=== PATIENT | female | born 1950 | race Asian ===

== ENCOUNTER 2017-11-23 10:50 | Inpatient (IN) | payer OTHER ==
[~2017-11-23] VITALS: Ht 160 cm; Wt 57.7 kg
[2017-11-23] MEDS ORDERED: ATEN50TA8 PO (12:01)
[2017-11-23] MEDS ORDERED: SODIUM CHLORIDE 0.9% 1000ML 1,000 ML IV SCH ×2 (12:19→17:00)
[2017-11-23] MEDS ORDERED: MECLIZINE HCL 25 MG TAB PO STA (12:19)
[2017-11-23 12:54] LABS: BASO % 0.4 %; BASO ABS # 0.02 K/uL (0-0.2); EOS % 2.6 %; EOS ABS # 0.13 K/uL (0-0.5); HEMATOCRIT 39.6 % (37-47); HEMOGLOBIN 13.5 g/dL (12.0-16.0); IG# 0.01 K/uL (0.00-0.02); LYMPH % 32.8 %; LYMPH ABS # 1.65 K/uL (1.2-3.4); MEAN CELL VOLUME 90.4 fL (80-100); MEAN CORPUSCULAR HEMOGLOBIN 30.8 pg (25-34); MEAN CORPUSCULAR HGB CONC 34.1 g/dl (32-36); MEAN PLATELET VOLUME 9.8 fL (7.4-10.4); MONO % 7.8 %; MONO ABS # 0.39 K/uL (0.11-0.59); NEUT % 56.2 %; NEUT ABS # 2.83 K/uL (1.4-6.5); PLATELET COUNT 224 K/uL (130-400); RED CELL DISTRIBUTION WIDTH CV 12.8 % (11.5-14.5); RED CELL DISTRIBUTION WIDTH SD 42.4 fL (36.4-46.3); WHITE BLOOD COUNT 5.03 K/uL (4.8-10.8)
[2017-11-23 13:02] LABS: PTT PATIENT 30.6 SECONDS (21.0-31.0)
--- NOTE | 2017-11-23 13:08 | DIAGNOSTIC IMAGING REPORT ---
HEAD WITHOUT CONTRAST (CT) CLINICAL HISTORY: 67 years-old Female presenting with Stroke. TECHNIQUE: Multidetector CT imaging of the head was performed without the use of intravenous contrast. IV contrast: None. A dose lowering technique was used consistent with the principles of ALARA (as low as reasonably achievable). COMPARISON: None. CT DOSE (mGy.cm): The estimated cumulative dose is 729.78 mGycm. FINDINGS: General Practice topogram: Unremarkable. Ventricles and sulci normal in size. Brain parenchyma normal in appearance with preserved sue-white differentiation. No mass effect or midline shift. No hemorrhage or acute territorial infarct. No extra-axial fluid collection. Paranasal sinuses and mastoid air cells clear. Calvarium intact. IMPRESSION: 1. No acute intracranial abnormality. Electronically signed by: Damaso Buchanan M.D. 11/23/2017 1:07 PM Dictated Date/Time: 11/23/2017 1:05 PM
[2017-11-23 13:15] LABS: BLOOD UREA NITROGEN 17 mg/dl (7-18); CALCIUM 9.4 mg/dl (8.5-10.1); CARBON DIOXIDE 26 mmol/L (21-32); CREATININE 0.68 mg/dl (0.60-1.20); GLUCOSE 83 mg/dl (70-99); POTASSIUM 3.6 mmol/L (3.5-5.1); SODIUM 138 mmol/L (136-145)
--- NOTE | 2017-11-23 13:31 | DIAGNOSTIC IMAGING REPORT ---
CHEST ONE VIEW PORTABLE CLINICAL HISTORY: 67 years-old Female presenting with Stroke. TECHNIQUE: Portable upright AP view of the chest was obtained. COMPARISON: 08/05/2007. FINDINGS: Atherosclerosis of the aortic arch. Cardiac silhouette normal in size. Lungs and pleural spaces clear. Degenerative changes of the thoracic spine. Upper abdomen normal. IMPRESSION: 1. No acute cardiopulmonary disease. Electronically signed by: Damaso Buchanan M.D. 11/23/2017 1:30 PM Dictated Date/Time: 11/23/2017 1:29 PM
[2017-11-23] MEDS ORDERED: ALUMINUM/MAGNESIUM/SIMETH (MAALOX MAX) 30 ML UDC PO PRN (14:15)
[2017-11-23] MEDS ORDERED: MECLIZINE HCL 25 MG TAB PO PRN (14:15)
[2017-11-23] MEDS ORDERED: ONDANSETRON INJ 2 MG/ML 2 ML VIAL IV PRN (14:15)
[2017-11-23] MEDS ORDERED: ACETAMINOPHEN 325 MG TAB PO PRN (14:15)
[2017-11-23] MEDS ORDERED: MAGNESIUM HYDROXIDE SUSP 30 ML UDC PO PRN (14:15)
[2017-11-23] MEDS ORDERED: POLYETHYLENE (MIRALAX) 17 GM PACK PO PRN (14:15)
[2017-11-23 14:24] VITALS: O2SAT 99; Ht 160 cm; Wt 57.7 kg
--- NOTE | 2017-11-23 14:33 | History and Physical ---
History & Physical Date & Time of Service: Nov 23, 2017 at 14:19 Chief Complaint: Possible Stroke, Sent By Physician Primary Care Physician: Andrea Patel M.D. History of Present Illness Source: patient, hospital records This is a 67 y/o female with a history of HTN and GERD who presented to the ED on 11/23 with intermittent dizziness and transient visual loss. The patient states that she first developed episodes of dizziness in August. She had gone to urgent care at that time for evaluation. An EKG was obtained, which was normal, and she was sent home. The dizziness then resolved until about a week ago. The patient states that the dizziness occurs when she stands up or bends over, or if she moves her head. She is able to walk without difficulty as long as she is looking forward. She denies any falls. She states she does sometimes feels nauseous with the dizziness but denies any vomiting. She notes she has felt more fatigued for the last few months. Two days ago, the patient developed a loss of vision in the upper half of her right eye that lasted about 10-15 minutes before resolving. The patient had called her eye doctor at that time, who then scheduled her an appointment for 11/24. Currently, the patient is feeling well and denies any dizziness or nausea. Her vision is at her baseline. The patient denies fevers, chills, sweats, loss of consciousness, chest pain, palpitations, claudication, cough, wheezing, shortness of breath, vomiting, abdominal pain, dysuria, hematuria, urinary retention, paralysis, weakness, numbness and tingling. Past Medical/Surgical History Medical Problems: (1) GERD (gastroesophageal reflux disease) Status: Chronic (2) HTN (hypertension) Status: Chronic Family History Breast cancer Diabetes mellitus Heart disease Social History Smoking Status: Never Smoker Smokeless Tobacco Use: No Alcohol Use: none Drug Use: none Marital Status: Housing status: lives with significant other Occupational Status: retired Multi-Drug Resistant Organisms History of MDRO: No Allergies Coded Allergies: Penicillins (Unverified Allergy, Unknown, UNKNOWN, 11/23/17) Home Medications Scheduled Atenolol (Tenormin), 50 MG PO DAILY Review of Systems Constitutional: No fever, No chills, No sweats Eyes: +Transient partial loss of vision right eye. No worsening of vision, No eye pain, No diplopia ENT: No hearing loss, No nasal symptoms, No trouble swallowing Respiratory: No cough, No wheezing, No shortness of breath Cardiovascular: No chest pain, No claudication, No palpitations Abdomen: +Nausea. No pain, No vomiting Musculoskeletal: No joint pain, No muscle pain, No swelling Genitourinary - Female: No dysuria, No urinary retention, No hematuria Neurologic: +Intermittent dizziness. No paralysis, No weakness, No numbness/ tingling Integumentary: No rash, No itch, No color change Physical Exam Vital Signs Date Time Temp Pulse Resp B/P (MAP) Pulse Ox O2 Delivery O2 Flow Rate FiO2 11/23/17 13:09 72 18 163/98 99 Room Air 11/23/17 12:24 72 11/23/17 11:33 70 20 159/95 95 Room Air 11/23/17 10:56 36.8 77 20 152/105 97 Room Air General appearance: Well-developed, well-nourished, no apparent distress Head: Normocephalic, atraumatic Eyes: +Right pupil irregular shape. Cataracts. Pupils reactive to light. EOMI ENT: Normal ENT inspection, hearing grossly normal, pharynx normal Neck: Supple, no JVD, trachea midline Respiratory/Chest: Lungs clear to auscultation, normal breath sounds, no respiratory distress Cardiovascular: Regular rate & rhythm, no gallop, no murmur Abdomen/GI: Normal bowel sounds, non-tender, soft Extremities/Musculoskeletal: Normal inspection, no calf tenderness, no pedal edema Neurological/Psych: +Dizziness with head ROM. Alert, normal mood/affect, oriented x 3 Skin: Normal color, warm/dry, no rash Diagnostics Laboratory Results Results Past 24 Hours Test 11/23/17 12:23 11/23/17 12:36 Range/Units Urine Color YELLOW Urine Appearance CLEAR CLEAR Urine pH 7.5 4.5-7.5 Urine Specific [place] 1.005 1.000-1.030 Urine Protein NEG NEG Urine Glucose (UA) NEG NEG Urine Ketones NEG NEG Urine Occult Blood NEG NEG Urine Nitrite NEG NEG Urine Bilirubin NEG NEG Urine Urobilinogen NEG NEG Urine Leukocyte Esterase NEG NEG White Blood Count 5.03 4.8-10.8 K/uL Red Blood Count 4.38 4.2-5.4 M/uL Hemoglobin 13.5 12.0-16.0 g/dL Hematocrit 39.6 37-47 % Mean Corpuscular Volume 90.4 80-100 fL Mean Corpuscular Hemoglobin 30.8 25-34 pg Mean Corpuscular Hemoglobin Concent 34.1 32-36 g/dl Platelet Count 224 130-400 K/uL Mean Platelet Volume 9.8 7.4-10.4 fL Neutrophils (%) (Auto) 56.2 % Lymphocytes (%) (Auto) 32.8 % Monocytes (%) (Auto) 7.8 % Eosinophils (%) (Auto) 2.6 % Basophils (%) (Auto) 0.4 % Neutrophils # (Auto) 2.83 1.4-6.5 K/uL Lymphocytes # (Auto) 1.65 1.2-3.4 K/uL Monocytes # (Auto) 0.39 0.11-0.59 K/uL Eosinophils # (Auto) 0.13 0-0.5 K/uL Basophils # (Auto) 0.02 0-0.2 K/uL RDW Standard Deviation 42.4 36.4-46.3 fL RDW Coefficient of Variation 12.8 11.5-14.5 % Immature Granulocyte % (Auto) 0.2 % Immature Granulocyte # (Auto) 0.01 0.00-0.02 K/uL Prothrombin Time 10.0 9.0-12.0 SECONDS Prothromb Time International Ratio 1.0 0.9-1.1 Activated Partial Thromboplast Time 30.6 21.0-31.0 SECONDS Partial Thromboplastin Ratio 1.2 Sodium Level 138 136-145 mmol/L Potassium Level 3.6 3.5-5.1 mmol/L Chloride Level 106 98-107 mmol/L Carbon Dioxide Level 26 21-32 mmol/L Anion Gap 6.0 3-11 mmol/L Blood Urea Nitrogen 17 7-18 mg/dl Creatinine 0.68 0.60-1.20 mg/dl Est Creatinine Clear Calc Drug Dose 65.5 ml/min Estimated GFR () 104.2 Estimated GFR (Non- 89.9 BUN/Creatinine Ratio 24.9 10-20 Random Glucose 83 70-99 mg/dl Calcium Level 9.4 8.5-10.1 mg/dl Magnesium Level 2.7 1.8-2.4 mg/dl Troponin I < 0.015 0-0.045 ng/ml Diagnostic Radiology Reviewed the following studies and agree with interpretation as follows: [~ rep ct add3]] HEAD WITHOUT CONTRAST (CT) CLINICAL HISTORY: 67 years-old Female presenting with Stroke. TECHNIQUE: Multidetector CT imaging of the head was performed without the use of intravenous contrast. IV contrast: None. A dose lowering technique was used consistent with the principles of ALARA (as low as reasonably achievable). COMPARISON: None. CT DOSE (mGy.cm): The estimated cumulative dose is 729.78 mGycm. FINDINGS: Childcare Provider topogram: Unremarkable. Ventricles and sulci normal in size. Brain parenchyma normal in appearance with preserved sue-white differentiation. No mass effect or midline shift. No hemorrhage or acute territorial infarct. No extra-axial fluid collection. Paranasal sinuses and mastoid air cells clear. Calvarium intact. IMPRESSION: 1. No acute intracranial abnormality. CHEST ONE VIEW PORTABLE CLINICAL HISTORY: 67 years-old Female presenting with Stroke. TECHNIQUE: Portable upright AP view of the chest was obtained. COMPARISON: 08/05/2007. FINDINGS: Atherosclerosis of the aortic arch. Cardiac silhouette normal in size. Lungs and pleural spaces clear. Degenerative changes of the thoracic spine. Upper abdomen normal. IMPRESSION: 1. No acute cardiopulmonary disease. EKG Reviewed EKG and agree with interpretation as follows: 68 bpm, NSR Impression Assessment and Plan 67 y/o female with a history of HTN and GERD who presented to the ED on 11/23 with intermittent dizziness and transient visual loss. The patient arrived to the ED AVSS. Head CT and CXR no acute disease. EKG no ischemic changes. Labs unremarkable. Pt denies any complaints currently. Dizziness, transient right vision loss--possible TIA -Admit to telemetry for observation -Stroke protocol -Check MRI brain, MRA head and neck -Fasting lipid panel -HgbA1c -NSS at 50 cc/hr -Start Lipitor 40 mg PO hs and ASA 81 mg PO qd for now -Check echocardiogram -Orthostatic BPs q shift -Meclizine 25 mg PO q8h prn dizziness/vertigo HTN--stable, allow for permissive HTN -Continue atenolol 50 mg PO qd. Pt states she has been taking this for over 10 years w/no problems DVT prophylaxis -Enoxaparin 40 mg SC q24h -RICARDO hose and SCDs Code Status -Level V, DO NOT RESUSCITATE Dispo -From home w/ -PT/OT evaluate and treat I personally interviewed and examined the patient. I agree with history of present illness and physical exam mentioned above, I also performed my own history taking and examination. Past medical history and review of system has been obtained by myself I reviewed all pertinent labs and studies Reviewed current medications I discussed and formulated the assessment and plan mentioned above by Miss Alaniz Please refer to the Summary mentioned below. 67-year-old female with past medical history of hypertension presented to the ED with dizziness associated with head movement. Patient dizziness is intermittent happened within the last week. Also she had an episode of partial loss of upper field of vision on the right eye that lasted 20 minutes. As per ED exam she does have some peripheral loss of vision in both eyes but patient said that this is not new. Patient called her tool design checker about the loss of vision in the right upper field and he told her that it's okay for her to come on Thursday. She has not been examined yet by tool design checker. Assessment Dizziness/intermittent An episode of transient loss of upper field of vision on the right eye/resolved Hypertension GERD Plan It could be simple benign positional vertigo for the association of transient loss of vision with commitment to further workup Sedimentation rate/CRP rule out GCA MRI MRA head and neck 2-D echo rule out any embolic source of her symptoms Lipids panel/hemoglobin A1c to stratify her risk factors for stroke Empiric aspirin/statin General Appearance: not in acute distress Eyes: normal Sclerae, extraocular muscle intact ENT: hearing grossly normal Neck: supple Respiratory/Chest: normal air entry bilateral ,no respiratory distress, no accessory muscle use Cardiovascular: regular rate, rhythm, no murmur Abdomen: non tender, soft, no masses Extremities: no edema Neurologic/Psychiatric: Awake alert oriented times place and person moves all extremities sensation intact cranial nerves II-12 appear to be intact Skin: normal color, warm/dry, no rash Lenora Trevino MD, [facility] Level of Care Telemetry Resuscitation Status DO NOT RESUSCITATE VTE Prophylaxis VTE Risk Assessment Done? Y/N: Yes Risk Level: Moderate Given or contraindicated: Enoxaparin (Lovenox)SQ, T.E.D. Stockings, SCD's
--- NOTE | 2017-11-23 14:37 | EMERGENCY ROOM VISIT NOTE ---
History Report prepared by Jennifer: Romero Flowers Under the Supervision of: Dr. Yazan Curiel M.D. First contact with patient: 12:04 Chief Complaint: NEURO SYMPTOMS Stated Complaint: POSSIBLE STROKE, SENT BY PHYSICIAN Nursing Triage Summary: pt has anxious affect pt reports having dizziness since , went to [facility] had normal EKG and told she was ok, on Thursday pt developed visual changes pt reports "the top of my vision in my right eye was all black" pt reports having bad eyes and always having blurry vision pt reports having chronic neck pain episodes of nausea saw pcp who referred to ER History of Present Illness The patient is a 67 year old female who presents to the Emergency Room with complaints of intermittent dizziness beginning five days ago. Her first episode began while going to the bathroom last August but resolved after an hour. It returned 5 days ago. Her dizziness is worsened with moving her head. The patient also complains of nausea, and mild headache. Her headache began two days ago. She also states that she experienced some visual changes two days ago. The patient's visual changes involved the upper half of her visual field of her right eye appearing "black". Her visual changes resolved after 15 minutes. She notes that she has a history of "eye problems" including tunnel vision. The patient denies vomiting, difficulty swallowing, or difficulty with speech. She notes that her left fingers and toes feel numb and weak, but that this is present all the time (for "years") and denies any new numbness or weakness. She took her medication today as normal. The patient notes that she had one similar episode of dizziness around (four months ago), but has not had another one since. She was seen at [facility] for her dizziness at the time and had a normal ECG. Source of History: patient Onset: Five days ago Position: other (global) Quality: other (dizziness) Timing: intermittent Modifying Factors (Worsening): other (moving her head) Associated Symptoms: + headache (mild), + nausea, No vomiting Note: The patient denies difficulty swallowing, or difficulty with speech. She also complains of resolved right sided visual changes occurring two days ago. Review of Systems See HPI for pertinent positives & negatives. A total of 10 systems reviewed and were otherwise negative. Past Medical & Surgical Medical Problems: (1) Dizziness (2) GERD (gastroesophageal reflux disease) (3) HTN (hypertension) (4) Transient vision disturbance of right eye Family History No pertinent family history stated. Social History Smoking Status: Never Smoker Housing Status: lives with family Current/Historical Medications Scheduled Atenolol (Tenormin), 50 MG PO DAILY Allergies Coded Allergies: Penicillins (Unverified Allergy, Unknown, UNKNOWN, 11/23/17) Physical Exam Vital Signs Date Time Temp Pulse Resp B/P (MAP) Pulse Ox O2 Delivery O2 Flow Rate FiO2 11/23/17 13:09 72 18 163/98 99 Room Air 11/23/17 12:24 72 11/23/17 11:33 70 20 159/95 95 Room Air 11/23/17 10:56 36.8 77 20 152/105 97 Room Air Physical Exam Constitutional: Vital signs reviewed. Eyes: Pupils are equal round reactive to light. Conjunctiva are noninjected. ENT: Pharynx is clear without erythema or exudate. Mucous membranes are moist. Neck supple without meningeal signs. Respiratory: Clear to auscultation bilaterally. Breath sounds are equal bilaterally. Cardiovascular: Regular rate and rhythm. No rubs or gallops. GI: Soft, nondistended and nontender. Bowel sounds are present. Musculoskeletal: No peripheral edema. No lower extremity tenderness. Integumentary: No cyanosis. Neurological: The patient is awake and alert. Cranial nerves II-XII are intact. Motor is 5 out of 5 all extremities. Sensation is intact to light touch all extremities. Normal speech. No pronator drift. No limb ataxia. Testing of visual [place] by confrontation demonstrates bilateral diminished peripheral vision. No diadochokinesis. Positive head impulse testing. No nystagmus. Negative test of skew. Psychiatric: Normal affect. Medical Decision & Procedures ER Provider Diagnostic Interpretation: Radiology results as stated below per my review and the radiologist's interpretation: HEAD WITHOUT CONTRAST (CT) FINDINGS: Rigging Man topogram: Unremarkable. Ventricles and sulci normal in size. Brain parenchyma normal in appearance with preserved sue-white differentiation. No mass effect or midline shift. No hemorrhage or acute territorial infarct. No extra-axial fluid collection. Paranasal sinuses and mastoid air cells clear. Calvarium intact. IMPRESSION: 1. No acute intracranial abnormality. Electronically signed by: Damaso Buchanan M.D. 11/23/2017 1:07 PM CHEST ONE VIEW PORTABLE FINDINGS: Atherosclerosis of the aortic arch. Cardiac silhouette normal in size. Lungs and pleural spaces clear. Degenerative changes of the thoracic spine. Upper abdomen normal. IMPRESSION: 1. No acute cardiopulmonary disease. Electronically signed by: Damaso Buchanan M.D. 11/23/2017 1:30 PM Laboratory Results 11/23/17 12:36 Red Blood Count 4.38, Mean Corpuscular Volume 90.4, Mean Corpuscular Hemoglobin 30.8, Mean Corpuscular Hemoglobin Concent 34.1, Mean Platelet Volume 9.8, Neutrophils (%) (Auto) 56.2, Lymphocytes (%) (Auto) 32.8, Monocytes (%) (Auto) 7.8, Eosinophils (%) (Auto) 2.6, Basophils (%) (Auto) 0.4, Neutrophils # (Auto) 2.83, Lymphocytes # (Auto) 1.65, Monocytes # (Auto) 0.39, Eosinophils # (Auto) 0.13, Basophils # (Auto) 0.02 11/23/17 12:36 Test 11/23/17 12:23 11/23/17 12:36 Urine Color YELLOW Urine Appearance CLEAR (CLEAR) Urine pH 7.5 (4.5-7.5) Urine Specific [place] 1.005 (1.000-1.030) Urine Protein NEG (NEG) Urine Glucose (UA) NEG (NEG) Urine Ketones NEG (NEG) Urine Occult Blood NEG (NEG) Urine Nitrite NEG (NEG) Urine Bilirubin NEG (NEG) Urine Urobilinogen NEG (NEG) Urine Leukocyte Esterase NEG (NEG) White Blood Count 5.03 K/uL (4.8-10.8) Red Blood Count 4.38 M/uL (4.2-5.4) Hemoglobin 13.5 g/dL (12.0-16.0) Hematocrit 39.6 % (37-47) Mean Corpuscular Volume 90.4 fL (80-100) Mean Corpuscular Hemoglobin 30.8 pg (25-34) Mean Corpuscular Hemoglobin Concent 34.1 g/dl (32-36) Platelet Count 224 K/uL (130-400) Mean Platelet Volume 9.8 fL (7.4-10.4) Neutrophils (%) (Auto) 56.2 % Lymphocytes (%) (Auto) 32.8 % Monocytes (%) (Auto) 7.8 % Eosinophils (%) (Auto) 2.6 % Basophils (%) (Auto) 0.4 % Neutrophils # (Auto) 2.83 K/uL (1.4-6.5) Lymphocytes # (Auto) 1.65 K/uL (1.2-3.4) Monocytes # (Auto) 0.39 K/uL (0.11-0.59) Eosinophils # (Auto) 0.13 K/uL (0-0.5) Basophils # (Auto) 0.02 K/uL (0-0.2) RDW Standard Deviation 42.4 fL (36.4-46.3) RDW Coefficient of Variation 12.8 % (11.5-14.5) Immature Granulocyte % (Auto) 0.2 % Immature Granulocyte # (Auto) 0.01 K/uL (0.00-0.02) Prothrombin Time 10.0 SECONDS (9.0-12.0) Prothromb Time International Ratio 1.0 (0.9-1.1) Activated Partial Thromboplast Time 30.6 SECONDS (21.0-31.0) Partial Thromboplastin Ratio 1.2 Anion Gap 6.0 mmol/L (3-11) Est Creatinine Clear Calc Drug Dose 65.5 ml/min Estimated GFR () 104.2 Estimated GFR (Non- 89.9 BUN/Creatinine Ratio 24.9 (10-20) Calcium Level 9.4 mg/dl (8.5-10.1) Magnesium Level 2.7 mg/dl (1.8-2.4) Troponin I < 0.015 ng/ml (0-0.045) Laboratory results as reviewed by me. Medications Administered Medications (Trade) Dose Ordered Sig/Adalberto Route Start Time Stop Time Status Last Admin Dose Admin Meclizine HCl (Antivert Tab) 25 mg NOW STAT PO 11/23/17 12:19 11/23/17 12:21 DC 11/23/17 12:38 25 MG ECG Indication: other (neurologic symptoms) Rate (beats per minute): 68 Rhythm: normal sinus Findings: no acute ischemic change, no ectopy ED Course 1208: The patient was evaluated in room B12B. A complete history and physical exam was performed. 1219: Ordered Antivert Tab 25 mg PO, Sodium Chloride 1000 ml @ 50 mls/hr IV. 1316: Upon reevaluation, the patient is resting comfortably. She has seen minimal relief with the Antivert. I discussed tonight's findings with her. She verbalized agreement of the treatment plan. The patient will be evaluated for further management. Medical Decision This is a 67-year-old female presents with dizziness and visual complaints. Differential diagnosis includes CVA, TIA, intracranial mass, intracranial hemorrhage, vertebrobasilar insufficiency, benign positional vertigo. I did perform a limited focused review of portions of the patient's old chart on the electronic medical record. The patient has had no recent pertinent visits to this hospital. I did evaluate the patient as noted above. Patient is presenting with dizziness which she describes as a disequilibrium. She denies vertigo. She also had loss of a visual field 2 days ago while looking at her phone. She stated that the right superior visual field was completely black for about 15 minutes. She has had no visual field loss since then. She does state that she has a history of visual problems sees an eye doctor but never had this field loss before. IV access was established. I did treat the patient with Antivert 25 mg orally. The patient was placed on a continuous cardiac cath rn. I did order and personally review the patient's 12-lead EKG and chest x-ray as described above. I did order and review the patient's blood work as noted in the electronic medical record. Her magnesium is slightly elevated. I did order a CT of the head. I did review the images myself as well as the radiology report as described above. I did discuss the test results with the patient. I did recommend hospitalization for further workup including MRI and MRA. I did discuss the case with the hospitalist and comp field case manager. Medication Reconcilliation Current Medication List: was personally reviewed by me Blood Pressure Screening Patient's blood pressure: Elevated blood pressure Blood pressure disposition: Referred to PCP Consults Time Called: 1312 Consulting Physician: Dr. Christie [facility] Hospitalist Returned Call: [address] Christie of [facility] Hospitalist Service. We discussed the patient and her results. The patient will be further evaluated by [facility]. Impression Primary Impression: Disequilibrium Additional Impressions: Hemianopsia Hypermagnesemia Scribe Attestation The scribe's documentation has been prepared under my direct and personally reviewed by me in its entirety. I confirm that the note above accurately reflects all work, treatment, procedures, and medical decision making performed by me. Departure Information Dispostion Being Evaluated By Hospitalist Referrals Andrea Patel M.D. (PCP) Patient Instructions [facility] Health Problem Qualifiers
[2017-11-23] MEDS ORDERED: PHARMACIST DISCHARGE MED REC CONSULT PRN (14:45)
[2017-11-23 15:39] VITALS: O2SAT 97
[2017-11-23] MEDS ORDERED: IV FLUIDS COMPLETED PRN (16:00)
--- NOTE | 2017-11-23 16:17 | ECHOCARDIOGRAM REPORT ---
*NOTICE TO RECEIVING REPUBLICAN AGENCY This information is strictly Confidential and protected under [place] law. [place] law prohibits you from making any further disclosure of this information unless further disclosure is expressly permitted by the written consent of the person to whom it pertains or is authorized by law. A general authorization for the release of medical or other information is not sufficient for this purpose. Hospital accepts no responsibility if the information is made available to any other person, INCLUDING THE PATIENT. Interpretation Summary * Name: JAIDEN BAI Study Date: 11/23/2017 02:26 PM BP: 163/98 mmHg * Patient Location: C.EDB HR: 72 * : 1950 (M/d/yyyy) Gender: Female Height: 62 in * Age: 67 yrs Ethnicity: Weight: 131 lb * Ordering Physician: Nava Alaniz * Referring Physician: Andrea Patel * Performed By: Iris Latham RDCS * * Reason For Study: Dizziness, Transient Visual Change * BSA: 1.6 m2 * -- Conclusions -- * 1. Normal LV size. Borderline concentric LVH. * 2. Normal LV systolic function. LVEF 60-65%. No regional wall motion abnormalities. * 3. Normal RV size and function. * 4. No significant valvular pathology. * 5. Normal estimated PA and RA pressures. * 6. Technically difficult saline contrast study - grossly negative for interatrial shunt. Procedure Details * A complete two-dimensional transthoracic echocardiogram was performed (2D, M-mode, Doppler and color flow Doppler). * A saline contrast injection was performed to assess for cardiac shunting. * The injection was performed through an intravenous line in the left arm. * The attending nurse who injected the saline contrast was Naheed Wilkinson RN. * A total of 20 cc of agitated saline was given. Left Ventricle * The left ventricle is grossly normal size. * There is borderline concentric left ventricular hypertrophy. * Ejection Fraction = 60-65%. * No regional wall motion abnormalities noted. Right Ventricle * The right ventricle is grossly normal size. * The right ventricular systolic function is normal as assessed by tricuspid annular plane systolic excursion (TAPSE) (normal >1.5 cm). Atria * The left atrial size is normal. * Right atrial size is normal. * Injection of contrast documented no interatrial shunt. Mitral Valve * The mitral valve is grossly normal. * There is no mitral valve stenosis. * There is trace mitral regurgitation. Tricuspid Valve * The tricuspid valve is not well visualized, but is grossly normal. * There is no tricuspid stenosis. * There is trace tricuspid regurgitation. Aortic Valve * The aortic valve opens well. * No hemodynamically significant valvular aortic stenosis. * There is no significant aortic regurgitation. Pulmonic Valve * The pulmonary valve is inadequately visualized, but the Doppler data is adequate for interpretation. * Pulmonic stenosis is absent. * There is no significant pulmonary regurgitation. Great Vessels * The aortic root and proximal ascending aorta are normal sized. Pericardium/Pleural * There is no pericardial effusion. Great Vessels * There is no evidence of pulmonary hypertension. The PA systolic pressure is less than 36 mmHg. * Normal inferior vena cava size and collapsability with sniff indicates a normal right atrial pressure of 3 mmHg MMode 2D Measurements and Calculations IVSd 1.2 cm IVSs 1.3 cm LVIDd 3.7 cm LVIDs 2.5 cm LVPWd 1.1 cm LVPWs 1.7 cm IVS/LVPW 1.0 FS 32.1 % EDV(Teich) 58.2 ml ESV(Teich) 22.6 ml EF(Teich) 61.1 % EDV(cubed) 50.7 ml ESV(cubed) 15.9 ml EF(cubed) 68.7 % % IVS thick 9.3 % % LVPW thick 50.7 % LV mass(C)d 135.9 grams LV mass(C)dI 85.1 grams/m\S\2 LV mass(C)s 122.9 grams LV mass(C)sI 77.0 grams/m\S\2 SV(Teich) 35.6 ml SI(Teich) 22.3 ml/m\S\2 SV(cubed) 34.8 ml SI(cubed) 21.8 ml/m\S\2 Ao root diam 2.6 cm Ao root area 5.2 cm\S\2 ACS 1.6 cm LA dimension 2.9 cm LA/Ao 1.1 LVAd ap4 18.9 cm\S\2 LVLd ap4 7.1 cm EDV(MOD-sp4) 43.8 ml EDV(sp4-el) 42.9 ml LVAs ap4 10.1 cm\S\2 LVLs ap4 6.0 cm ESV(MOD-sp4) 16.0 ml ESV(sp4-el) 14.4 ml EF(MOD-sp4) 63.6 % EF(sp4-el) 66.3 % LVAd ap2 18.4 cm\S\2 LVLd ap2 7.4 cm EDV(MOD-sp2) 39.7 ml EDV(sp2-el) 38.8 ml LVAs ap2 8.8 cm\S\2 LVLs ap2 5.8 cm ESV(MOD-sp2) 12.5 ml ESV(sp2-el) 11.3 ml EF(MOD-sp2) 68.6 % EF(sp2-el) 70.9 % LVLd %diff 3.9 % EDV(MOD-bp) 42.4 ml LVLs %diff -4.68 % ESV(MOD-bp) 14.3 ml EF(MOD-bp) 66.3 % SV(MOD-sp4) 27.9 ml SI(MOD-sp4) 17.5 ml/m\S\2 SV(MOD-sp2) 27.2 ml SI(MOD-sp2) 17.0 ml/m\S\2 SV(MOD-bp) 28.1 ml SI(MOD-bp) 17.6 ml/m\S\2 SV(sp4-el) 28.4 ml SI(sp4-el) 17.8 ml/m\S\2 SV(sp2-el) 27.5 ml SI(sp2-el) 17.2 ml/m\S\2 Doppler Measurements and Calculations MV E max raghav 58.8 cm/sec MV A max raghav 93.8 cm/sec MV E/A 0.63 MV dec time 0.34 sec Ao V2 max 115.4 cm/sec Ao max PG 5.3 mmHg Ao max PG (full) 0.34 mmHg LV V1 max PG 5.0 mmHg LV V1 max 111.6 cm/sec PA V2 max 103.0 cm/sec PA max PG 4.2 mmHg TR max raghav 225.5 cm/sec
[2017-11-23 20:21] VITALS: BP 130/82; PULSE 78; TEMP 36.5; O2SAT 100
[2017-11-23] MEDS ORDERED: GADAVIST IV PRN (21:00)
[2017-11-23] MEDS ORDERED: ATORVASTATIN 40 MG TAB PO SCH (21:00)
--- NOTE | 2017-11-23 21:24 | DIAGNOSTIC IMAGING REPORT ---
BRAIN WITHOUT CONTRAST HISTORY: 67 years-old Female Stroke acute strokelike symptoms COMPARISON: MRA head and neck of same day, CT head of same day TECHNIQUE: Multiplanar multisequence MRI of the brain was obtained without contrast. FINDINGS: There is no restricted diffusion to suggest acute infarction. The midline structures including the corpus callosum, brainstem, optic chiasm, infundibulum, pituitary and pineal glands are unremarkable the sagittal T1 series. No cerebellar tonsillar herniation. Imaged cervical spine is unremarkable. There is no acute intracranial hemorrhage, midline shift, hydrocephalus, intracranial mass or abnormal extra-axial collections. There are scattered foci of T2/FLAIR prolongation seen within the subcortical and periventricular white matter of the cerebral hemispheres bilaterally. The major flow voids at the level of the skull base appear patent. Mastoid air cells are clear. Mild ethmoid sinus disease. Scalp, calvarium and soft tissues are unremarkable. Orbits are within normal limits. IMPRESSION: 1. No acute intracranial abnormality. No acute infarction. 2. Mild chronic microvascular ischemic changes. The above report was generated using voice recognition software. It may contain grammatical, syntax or spelling errors. Electronically signed by: Dell Eagle M.D. 11/23/2017 9:23 PM Dictated Date/Time: 11/23/2017 9:18 PM
--- NOTE | 2017-11-23 21:46 | DIAGNOSTIC IMAGING REPORT ---
MRA NECK COMBO CLINICAL HISTORY: 67 years-old Female with Stroke. Acute strokelike symptoms with dizziness COMPARISON STUDY: MRI brain of same day. TECHNIQUE: Axial 2-D [id number] MR angiography of the neck is performed. Subsequently, following the IV administration of 5 mL Gadavist coronal MR angiogram of the neck was performed to corroborate the findings. 3-D reformats are created and assessed. All measurements were calculated based on NASCET criteria. FINDINGS: Large [id number] director biology localizer images demonstrate no gross abnormality. The bilateral common and internal carotid arteries appear widely patent and within normal limits. Vertebral arteries appear codominant and are also widely patent. Normal three-vessel aortic arch is present. There is no high-grade stenosis, aneurysm, dissection or proximal branch occlusion. The imaged bilateral subclavian arteries also appear patent. IMPRESSION: Unremarkable MRA of the neck The above report was generated using voice recognition software. It may contain grammatical, syntax or spelling errors. Electronically signed by: Dell Eagle M.D. 11/23/2017 9:45 PM Dictated Date/Time: 11/23/2017 9:41 PM
--- NOTE | 2017-11-23 21:52 | DIAGNOSTIC IMAGING REPORT ---
MRA HEAD WITHOUT CONTRAST HISTORY: 67 years-old Female Stroke - Attention to [place] acute strokelike symptoms with dizziness and altered vision COMPARISON: MRA of the neck and MRI brain of same day TECHNIQUE: MRA of the head was obtained without contrast according to institutional protocol with 3-D [id number] sequence axial imaging and MIP reformats. All measurements were obtained according to NASCET criteria. FINDINGS: The bilateral internal carotid arteries are widely patent and within normal limits. The bilateral middle and anterior cerebral arteries are also widely patent and within normal limits. Anterior communicating artery is within normal limits and unremarkable. The vertebral arteries appear to be, dominant and patent. The basilar artery is also widely patent and within normal limits. The bilateral posterior cerebral arteries are widely patent and within normal limits. No aneurysm, high-grade stenosis or proximal branch occlusion identified. IMPRESSION: Unremarkable MRA of the head The above report was generated using voice recognition software. It may contain grammatical, syntax or spelling errors. Electronically signed by: Dell Eagle M.D. 11/23/2017 9:50 PM Dictated Date/Time: 11/23/2017 8:59 PM
[2017-11-23] MEDS ORDERED: ENOXAPARIN 40 MG/0.4 ML SYR SC SCH (22:00)
[2017-11-23 23:45] VITALS: BP 137/91; PULSE 73; TEMP 36.7; O2SAT 96
[2017-11-24 04:00] VITALS: BP_SYST 151; BP_SYST 156; BP_SYST 157; BP_DIAS 104; BP_DIAS 112; BP_DIAS 88; PULSE 72; TEMP 36.5; O2SAT 97
[2017-11-24 06:08] LABS: HEMOGLOBIN A1C 5.3 % (4.5-5.6)
[2017-11-24 07:32] LABS: BASO % 0.4 %; BASO ABS # 0.02 K/uL (0-0.2); EOS % 5.5 %; EOS ABS # 0.25 K/uL (0-0.5); HEMOGLOBIN 12.9 g/dL (12.0-16.0); IG# 0.01 K/uL (0.00-0.02); LYMPH % 36.1 %; LYMPH ABS # 1.63 K/uL (1.2-3.4); MEAN CELL VOLUME 90.1 fL (80-100); MEAN CORPUSCULAR HEMOGLOBIN 29.8 pg (25-34); MEAN CORPUSCULAR HGB CONC 33.1 g/dl (32-36); MEAN PLATELET VOLUME 9.3 fL (7.4-10.4); MONO % 7.5 %; MONO ABS # 0.34 K/uL (0.11-0.59); NEUT % 50.3 %; NEUT ABS # 2.27 K/uL (1.4-6.5); PLATELET COUNT 198 K/uL (130-400); RED CELL DISTRIBUTION WIDTH CV 12.9 % (11.5-14.5); RED CELL DISTRIBUTION WIDTH SD 42.5 fL (36.4-46.3); WHITE BLOOD COUNT 4.52 K/uL (4.8-10.8)
[2017-11-24 07:40] VITALS: BP 139/73; PULSE 72; TEMP 36.5; O2SAT 99
[2017-11-24 08:00] LABS: ALBUMIN 3.5 gm/dl (3.4-5.0); CALCIUM 8.7 mg/dl (8.5-10.1); CREATININE 0.64 mg/dl (0.60-1.20); POTASSIUM 3.8 mmol/L (3.5-5.1)
[2017-11-24 08:04] LABS: TOTAL PROTEIN 7.4 gm/dl (6.4-8.2)
[2017-11-24] MEDS ORDERED: ASPIRIN 81 MG ECTAB PO SCH (09:00)
--- NOTE | 2017-11-24 09:48 | Neurology Consultation ---
Neurology Consultation Date of Consultation: Nov 24, 2017. Attending Physician: Lenora Mcfarlane MD Primary Care Physician: Andrea Patel M.D. Reason for Consultation: Consultation for acute visual loss and dizziness History of Present Illness Source: patient, hospital records This is a 67-year-old female who presents for evaluation. She reports sudden of vision loss in her right eye. Describes that his vision going black in the upper half of her right vision. She didn't close one eye and the other and confirms that it was just in the right eye and not on the left. She denies any headache or pain in association. Denies any other associated focal symptoms. No numbness or weakness. No trouble speaking. No trouble swallowing. It does not seem that dizziness was closely associated. She reports that it lasted 10-15 minutes and resolved. She's never had anything like this in the past. She denied any chest pain, heart palpitations, shortness of breath in association. Denied any changes in her gait or walking. Only medication that she was taking at home was blood pressure medication. In terms of the dizziness, she reports that she had an episode of dizziness around and then a another episode of starting Thursday that is been intermittent and persistent since that time. She describes it as lightheadedness. Denies any movement or chew additional of vertigo-type symptoms. Wood does seem to go along with possible vertigo is that it is significantly worsened with any sort of head movement. She reports that if she keeps her head completely still that she does not have any dizziness. She denies feeling like she is content to pass out. Total cholesterol 209, LDL 116, HDL 76, triglycerides 85, hemoglobin A1c 5.3. MRI of the brain report and images reviewed by myself and unremarkable. No signs of acute or chronic strokes. MRA of the head and neck was also unremarkable. No critical stenosis Labs were reviewed and unremarkable. Patient does have an elevated ESR 41, although reviewing the records she was also noted to have an elevated ESR and 2009 of 38. Echocardiogram was unremarkable Review of systems the patient does have some chronic neck pain, "visual problems " described as blurry vision for years. Also reports some numbness and tingling of her left fingers and toes that she's had for years. Past Medical/Surgical History Medical Problems: (1) Disequilibrium Status: Acute (2) Hemianopsia Status: Acute (3) Hypermagnesemia Status: Acute Hypertension Family History Family history of CAD, diabetes, and cancer. Denies any history of strokes Social History Patient is normally independent in her activities of daily living. Active lifestyle and does yoga on a regular basis. No tobacco use. Smokeless Tobacco Use: No Alcohol Use: none Drug Use: none Marital Status: Housing Status: lives with family Occupation Status: retired Allergies Coded Allergies: Penicillins (Unverified Allergy, Unknown, UNKNOWN, 11/23/17) Current Inpatient Medications Current Inpatient Medications Medications (Trade) Dose Ordered Sig/Adalberto Route Start Time Stop Time Status Last Admin Dose Admin Enoxaparin Sodium (Lovenox Inj) 40 mg Q24H SC 11/23/17 22:00 12/23/17 21:59 11/23/17 21:29 40 MG Acetaminophen (Tylenol Tab) 650 mg Q4H PRN PO 11/23/17 14:15 12/23/17 14:14 Al Hydrox/Mg Hydrox/Simethicone (Maalox Max Susp) 15 ml Q4H PRN PO 11/23/17 14:15 12/23/17 14:14 Magnesium Hydroxide (Milk Of Magnesia Susp) 30 ml Q12H PRN PO 11/23/17 14:15 12/23/17 14:14 Ondansetron HCl (Zofran Inj) 4 mg Q6H PRN IV 11/23/17 14:15 12/23/17 14:14 Polyethylene (Miralax Powder Packet) 17 gm DAILY PRN PO 11/23/17 14:15 12/23/17 14:14 Meclizine HCl (Antivert Tab) 25 mg Q8H PRN PO 11/23/17 14:15 12/23/17 14:14 Atenolol (Tenormin Tab) 50 mg DAILY PO 11/24/17 09:00 12/24/17 08:59 11/24/17 08:20 50 MG Atorvastatin Calcium (Lipitor Tab) 40 mg HS PO 11/23/17 21:00 12/23/17 20:59 Aspirin (Ecotrin Tab) 81 mg QAM PO 11/24/17 09:00 12/24/17 08:59 11/24/17 08:20 81 MG Miscellaneous Information (Pharmacist Discharge Med Rec Consult) 1 alina UD PRN N/A 11/23/17 14:45 12/23/17 14:44 Sodium Chloride 1,000 ml @ 50 mls/hr Q20H IV 11/23/17 17:00 12/23/17 16:59 11/23/17 17:49 50 MLS/HR Miscellaneous (Iv Fluids Completed) 1 ea PRN PRN N/A 11/23/17 16:00 11/23/18 15:59 Gadobutrol (Gadavist) 5 mmol UD PRN IV 11/23/17 21:00 11/27/17 20:59 Review of Systems Complete review of systems otherwise negative except for the above noted in history of present illness Physical Exam Vital Signs (Past 24 Hrs): Date Time Temp Pulse Resp B/P (MAP) Pulse Ox O2 Delivery O2 Flow Rate FiO2 11/24/17 07:45 Room Air 11/24/17 07:40 36.5 72 16 139/73 (95) 99 Room Air 11/24/17 04:00 Room Air 11/24/17 04:00 36.5 72 18 151/88 (109) 97 Room Air 156/104 (121) 157/112 (127) 11/24/17 00:00 Room Air 11/23/17 23:45 36.7 73 18 137/91 (106) 96 Room Air 11/23/17 20:21 36.5 78 16 130/82 (98) 100 Room Air 11/23/17 20:00 Room Air 11/23/17 15:39 79 20 162/111 97 Room Air 11/23/17 14:24 99 Room Air 11/23/17 13:09 72 18 163/98 99 Room Air 11/23/17 12:24 72 11/23/17 11:33 70 20 159/95 95 Room Air 11/23/17 10:56 36.8 77 20 152/105 97 Room Air Gen.: Patient is alert and oriented in no acute distress, sitting on side of bed Heart: Regular rate and rhythm Extremities: No gross deformities or rashes noted Neurological examination: Mental status: Patient is alert and oriented to person place and time. Able to give own history. Attention concentration normal for the situation. Remote and recent memory intact Speech is fluent without any dysarthria or aphasia noted Cranial nerves: Visual stanton intact to counting. Funduscopic examination was difficult to visualize. Pupils equally round and reactive to light. Extraocular muscles intact without nystagmus. No facial asymmetry noted. Facial sensation intact. Tongue midline. Good palatal elevation. Good shoulder shrug bilaterally. Hearing grossly intact voice. Strength: 5/5 both proximal and distal in all extremities .Tone is normal. Sensation: Grossly intact to light touch in all extremities Deep tendon reflexes: +2 in bilateral biceps and patellar. Coordination: Patient has good finger to nose without dysmetria. Gait within normal limits. Appears stable. No ataxia noted. Laboratory Results Past 24 Hours: 11/24/17 07:17 Red Blood Count 4.33, Mean Corpuscular Volume 90.1, Mean Corpuscular Hemoglobin 29.8, Mean Corpuscular Hemoglobin Concent 33.1, Mean Platelet Volume 9.3, Neutrophils (%) (Auto) 50.3, Lymphocytes (%) (Auto) 36.1, Monocytes (%) (Auto) 7.5, Eosinophils (%) (Auto) 5.5, Basophils (%) (Auto) 0.4, Neutrophils # (Auto) 2.27, Lymphocytes # (Auto) 1.63, Monocytes # (Auto) 0.34, Eosinophils # (Auto) 0.25, Basophils # (Auto) 0.02 11/24/17 07:17 Test 11/23/17 12:23 11/23/17 12:36 11/24/17 07:17 Urine Color YELLOW Urine Appearance CLEAR (CLEAR) Urine pH 7.5 (4.5-7.5) Urine Specific [place] 1.005 (1.000-1.030) Urine Protein NEG (NEG) Urine Glucose (UA) NEG (NEG) Urine Ketones NEG (NEG) Urine Occult Blood NEG (NEG) Urine Nitrite NEG (NEG) Urine Bilirubin NEG (NEG) Urine Urobilinogen NEG (NEG) Urine Leukocyte Esterase NEG (NEG) Erythrocyte Sedimentation Rate 41 mm/hr (0-21) Prothrombin Time 10.0 SECONDS (9.0-12.0) Prothromb Time International Ratio 1.0 (0.9-1.1) Activated Partial Thromboplast Time 30.6 SECONDS (21.0-31.0) Partial Thromboplastin Ratio 1.2 Estimated Average Glucose 105 mg/dl Hemoglobin A1c 5.3 % (4.5-5.6) Troponin I < 0.015 ng/ml (0-0.045) C-Reactive Protein < 0.29 mg/dl (0-0.29) White Blood Count 4.52 K/uL (4.8-10.8) Red Blood Count 4.33 M/uL (4.2-5.4) Hemoglobin 12.9 g/dL (12.0-16.0) Hematocrit 39.0 % (37-47) Mean Corpuscular Volume 90.1 fL (80-100) Mean Corpuscular Hemoglobin 29.8 pg (25-34) Mean Corpuscular Hemoglobin Concent 33.1 g/dl (32-36) Platelet Count 198 K/uL (130-400) Mean Platelet Volume 9.3 fL (7.4-10.4) Neutrophils (%) (Auto) 50.3 % Lymphocytes (%) (Auto) 36.1 % Monocytes (%) (Auto) 7.5 % Eosinophils (%) (Auto) 5.5 % Basophils (%) (Auto) 0.4 % Neutrophils # (Auto) 2.27 K/uL (1.4-6.5) Lymphocytes # (Auto) 1.63 K/uL (1.2-3.4) Monocytes # (Auto) 0.34 K/uL (0.11-0.59) Eosinophils # (Auto) 0.25 K/uL (0-0.5) Basophils # (Auto) 0.02 K/uL (0-0.2) RDW Standard Deviation 42.5 fL (36.4-46.3) RDW Coefficient of Variation 12.9 % (11.5-14.5) Immature Granulocyte % (Auto) 0.2 % Immature Granulocyte # (Auto) 0.01 K/uL (0.00-0.02) Anion Gap 7.0 mmol/L (3-11) Est Creatinine Clear Calc Drug Dose 69.6 ml/min Estimated GFR () 106.3 Estimated GFR (Non- 91.7 BUN/Creatinine Ratio 27.2 (10-20) Calcium Level 8.7 mg/dl (8.5-10.1) Magnesium Level 2.3 mg/dl (1.8-2.4) Total Bilirubin 0.4 mg/dl (0.2-1) Aspartate Amino Transf (AST/SGOT) 17 U/L (15-37) Alanine Aminotransferase (ALT/SGPT) 20 U/L (12-78) Alkaline Phosphatase 74 U/L (45-117) Total Protein 7.4 gm/dl (6.4-8.2) Albumin 3.5 gm/dl (3.4-5.0) Globulin 3.9 gm/dl (2.5-4.0) Albumin/Globulin Ratio 0.9 (0.9-2) Triglycerides Level 85 mg/dl (0-150) Cholesterol Level 209 mg/dl (0-200) HDL Cholesterol 76 mg/dl LDL Cholesterol, Calculated 116 mg/dl VLDL Cholesterol, Calculated 17 mg/dl Cholesterol/HDL Ratio 2.8 Imaging As noted in history of present illness Impression This is a 67-year-old female with 10-15 minutes of transient superior visual loss in the right eye. Symptoms are concerning for a retinal TIA. Dizziness with movement is likely a separate issue and has some vertiginous components likely indicating more of a peripheral inner ear dysfunction. Plan Agree with initiation of aspirin 81 mg daily and statin medication for secondary stroke prevention. Recommend following up with ophthalmology as an outpatient for a good dilated eye exam and visual field testing Follow-up physical therapy recommendations for discharge planning. Anticipate that she will not have any therapy needs (but probably could benefit from outpatient physical therapy for dizziness with movement) Blood pressure recommendations while in hospital 175/95-150/80 (MAPS 90-110) Avoid hypotension and dehydration Stroke risk factor modifications and recommendations: Blood pressure recommendations for the first month post hospital discharge 150/ 90-130/80, and after that blood pressure recommendations 130/80-110/70 Total cholesterol goal 100- 200 and LDL goal less than 100 Hemoglobin A1c goal less than 7 (at goal) Encourage cardiovascular exercise at least 3 times a week for 30 minutes. For intermittent vertiginous type dizziness with movement, agree with meclizine as needed. Also recommend outpatient physical therapy evaluation and treatment. Follow-up in neurology clinic in 1 month for post TIA hospital follow-up. Thank you for allowing me to participate in this patient's care. If there is any questions or concerns, feel free to call/page me.
[2017-11-24 11:53] VITALS: BP 143/91; PULSE 72; TEMP 36.3; O2SAT 98
[2017-11-24] MEDS ORDERED: ASPEC81 PO (12:07)
[2017-11-24] MEDS ORDERED: LPT40 PO (12:07)
[2017-11-24 12:11] VITALS: BP 143/91; PULSE 72; TEMP 36.3; O2SAT 98
--- NOTE | 2017-11-24 12:15 | Discharge Instructions ---
Discharge Instructions Date of Service Nov 24, 2017. Admission Reason for Admission: Dizziness, Transient Vision Disturbance Of Rt Eye Discharge Discharge Diagnosis / Problem: TIA, dizziness, Discharge Goals Goal(s): Decrease discomfort, Improve function, Increase independence, Improve disease control, Improve nutritional status, Learn about illness, Diagnostic testing, Therapeutic intervention, Prevent Disease Progression, Specific goals Activity Recommendations Activity Limitations: resume your previous activity . Instructions / Follow-Up Instructions / Follow-Up you possible have "mini stroke", I ordered Aspirin 81 mg daily and Lipitor for secondary stroke prevention you need to following up with ophthalmology as an outpatient for a good dilated eye exam and visual field testing you need to follow-up out patient physical therapy, Rx is enclosed Avoid dehydration you have intermittent dizziness with movement, you can continue Meclizine as needed. you need to follow-up in neurology clinic in 1 month for post TIA hospital follow-up - you need to follow up with your primary care physician in 1 week, - take medication as instructed, never overdose or any misuse, or take with alcohol, because misuse of medicine may cause organ damage or , call your primary care physician if have questions of medicaitons. - call your primary care physician OR go to local emergency room if has any fever/chill, chest pain, shortness of breathing, nausea/vomiting/abdominal pain , facial droop/slurry speech/local weakness, or if has any questions. - fall precaution - diet as instructed - you need to follow up with your subspecialist - you should understand that it is important to follow up the above instruction , and "not following the above instruction" may cause delayed or missed care of your medical conditions which may cause permanent organ damage and even . Risk Factors for Stroke: You can reduce your chances of stroke by working with your medical provider to adopt a healthy lifestyle. Some specific ways to lower your chance of stroke are: * If you are a smoker, now is the time to stop smoking cigarettes * If you are diabetic, improve the control of your blood sugars * Avoid excessive amounts of alcohol * Control high blood pressure * Lose weight if you are overweight * Be sure to lead an active lifestyle * Eat a healthy diet low in salt, cholesterol and fat You should know about other risk factors for stroke that you are unable to control. These include: * Age 55 years or older * Male gender * Certain racial groups: , or / * Family History of Stroke, Mini stroke or Heart Attack * Sickle Cell Disease Follow Up: It is important for you to keep your follow up appointments with your medical provider. Current Hospital Diet Patient's current hospital diet: AHA Diet (Heart Healthy) Discharge Diet Recommended Diet: AHA Diet (Heart Healthy) Pending Studies Studies pending at discharge: no Laboratory Results Hemoglobin A1c Test 11/23/17 12:36 Range/Units Estimated Average Glucose 105 mg/dl Hemoglobin A1c 5.3 4.5-5.6 % Lipid Panel Test 11/24/17 07:17 Range/Units Triglycerides Level 85 0-150 mg/dl Cholesterol Level 209 H 0-200 mg/dl HDL Cholesterol 76 mg/dl Cholesterol/HDL Ratio 2.8 LDL Cholesterol, Calculated 116 mg/dl Medical Emergencies . Who to Call and When: Medical Emergencies: Call 911 immediately if you experience any of the following warning signs and symptoms of Stroke: * Sudden numbness or weakness of the face, arm or leg, especially on one side of the body * Sudden confusion, trouble speaking or understanding * Sudden trouble seeing in one or both eyes * Sudden trouble walking, dizziness, loss of balance or coordination * Sudden severe headache with no cause Do not delay calling 911 if you experience any warning signs or symptoms of a stroke. Delay in seeking medical attention may affect what treatments can be given to you. . Non-Emergent Contact Non-Emergency issues call your: Primary Care Provider, Neurologist, Supervisor Plastering . . "Provider Documentation" section prepared by Helder Stratton. . Stroke Core Measures Reason no t-PA for Stroke: Treatment not indicated Reason no antithrom by day 2: Treatment provided - N/A Reason no antithrom at D/C: Treatment provided - N/A Reason no statin at D/C: Treatment provided - N/A Reason no anticoag w/a fib: Treatment provided - N/A VTE Core Measure Inpt VTE Proph given/why not?: Enoxaparin (Lovenox)SQ, T.E.D. Stockings, SCD's
[2017-11-24] MEDS ORDERED: ANT25 PO (12:16)
--- NOTE | 2017-11-24 13:04 | Discharge Summary ---
Discharge Summary Date of Service Nov 24, 2017. Discharge Summary Admission Date: Nov 23, 2017 at 16:41 Discharge Date: Nov 24, 2017 Principal Diagnosis: TIA Problems/Secondary Diagnoses: vision changes intermittent dizziness Procedures: no Consultations: neuro Medication Reconciliation New Medications: Aspirin (Aspirin EC Low Dose) 81 Mg Ectab 81 MG PO QAM for 30 Days Atorvastatin (Lipitor) 40 Mg Tab 40 MG PO HS for 30 Days, TAB Meclizine HCl (Meclizine HCl) 25 Mg Tab 25 MG PO Q8H PRN for Dizziness or Vertigo for 5 Days, #10 TAB Continued Medications: Atenolol (Tenormin) 50 Mg Tab 50 MG PO DAILY Discharge Exam Doing well, no complaining, no more dizziness, has been up and walk with therapist Review of Systems: Constitutional: No fever, No chills, No sweats, No weight loss, No weakness , No fatigue, No problem reported Eyes: No worsening of vision, No eye pain, No redness, No discharge, No diplopia, No problem reported Respiratory: No cough, No sputum, No wheezing, No shortness of breath, No dyspnea on exertion, No dyspnea at rest, No hemoptysis, No problem reported Abdomen: No pain, No nausea, No vomiting, No diarrhea, No constipation, No GI bleeding, No problem reported Musculoskeletal: No joint pain, No muscle pain, No swelling, No calf pain, No problem reported Genitourinary - Female: No dysuria, No urinary frequency, No urinary urgency , No urinary incontinence, No urinary retention, No hematuria, No dysmenorrhea, No menorrhagia, No metrorrhagia, No rash, No vaginal bleeding, No vaginal discharge, No vaginal itching, No vulvodynia, No , No problem reported Neurologic: No memory loss, No paralysis, No weakness, No numbness/tingling , No vertigo, No balance problems, No problem reported Psychiatric: No depression symptoms, No anhedonism, No anxiety, No insomnia , No substance abuse, No problem reported Endocrine: No fatigue, No excessive thirst, No excessive urination, No problem reported Hematologic / Lymphatic: No abnormal bleeding/bruising, No clotting problems , No swollen lymph nodes, No night sweats, No problem reported Integumentary: No rash, No itch, No new/changing skin lesions, No color change, No bleeding, No problem reported Physical Exam: General Appearance: WD/WN, no apparent distress Eyes: normal inspection, PERRL, EOMI ENT: normal ENT inspection, hearing grossly normal, TMs normal, pharynx normal Neck: supple, no adenopathy, thyroid normal, no JVD Respiratory/Chest: chest non-tender, lungs clear, normal breath sounds, no respiratory distress, no accessory muscle use Cardiovascular: regular rate, rhythm, no edema, no gallop, no JVD, no murmur , normal peripheral pulses Abdomen / GI: normal bowel sounds, non tender, soft, no organomegaly, no pulsatile mass Extremities: normal inspection, no calf tenderness, normal capillary refill , no pedal edema, normal range of motion Neurologic/Psychiatric: set up and charger II-XII nml as tested, no motor/sensory deficits , alert, normal mood/affect, normal reflexes Skin: normal color, warm/dry Hospital Course 67 y/o female with a history of HTN and GERD who presented to the ED on 11/23 with intermittent dizziness and transient visual loss. in Emergency room , Head CT and CXR no acute disease. EKG no ischemic changes. Labs unremarkable. Pt denies any complaints currently. Dizziness, transient right vision loss--possible TIA -Admit to telemetry for observation, choreography director was not remarkable -Stroke protocol, no any new episodes of deficits or dizziness -Checked MRI brain, MRA head and neck, they were not remarkable -Fasting lipid panel, total cholesterol 209, LDL 116 -HgbA1c was 5.3 - Patient has been on NSS at 50 cc/hr, IV fluids discontinued, tolerate diet, no speech problem no choking or dysphagia -Started Lipitor 40 mg PO hs and ASA 81 mg PO qd , need to be continued after discharging -Checked echocardiogram, which were unremarkable -Orthostatic BPs q shift, which was negative -Meclizine 25 mg PO q8h prn dizziness/vertigo HTN--stable, allow for permissive HTN, for first 24 hours Plan discharge , continue atenolol 50 mg PO qd. Pt states she has been taking this for over 10 years w/no problems, adviced patient to have outpatient physical therapy for dizziness, and possible recent TIA, also recommend to follow-up with PCP and neurologist, to keep appointment with the director of medical education as well DVT prophylaxis -Enoxaparin 40 mg SC q24h -RICARDO hose and SCDs Code Status -Level V, DO NOT RESUSCITATE Dispo -From home w/ -PT/OT evaluate and treat Instructions / Follow-Up you possible have "mini stroke", I ordered Aspirin 81 mg daily and Lipitor for secondary stroke prevention you need to following up with ophthalmology as an outpatient for a good dilated eye exam and visual field testing you need to follow-up out patient physical therapy, Rx is enclosed Avoid dehydration you have intermittent dizziness with movement, you can continue Meclizine as needed. you need to follow-up in neurology clinic in 1 month for post TIA hospital follow-up - you need to follow up with your primary care physician in 1 week, - take medication as instructed, never overdose or any misuse, or take with alcohol, because misuse of medicine may cause organ damage or , call your primary care physician if have questions of medicaitons. - call your primary care physician OR go to local emergency room if has any fever/chill, chest pain, shortness of breathing, nausea/vomiting/abdominal pain , facial droop/slurry speech/local weakness, or if has any questions. - fall precaution - diet as instructed - you need to follow up with your subspecialist - you should understand that it is important to follow up the above instruction , and "not following the above instruction" may cause delayed or missed care of your medical conditions which may cause permanent organ damage and even . Total Time Spent: Greater than 30 minutes This includes examination of the patient, discharge planning, medication reconciliation, and communication with other providers. Discharge Instructions Please refer to the electronic Patient Visit Report (Discharge Instructions) for additional information. Additional Copies To Andrea Patel M.D.
== END 2017-11-24 12:33 | disposition home or self-care (01) | DRG 69 ==
LOC: C.EDB 10:51 → C.MED 14:11 → ENRESERV 15:30 → OBSVTOIN 16:41
PROVIDERS: ADMIT Internal Medicine; ATTEND Hospitalist
DX: G45.9 Transient cerebral ischemic attack, unspecified (principal); K21.9 Gastro-esophageal reflux disease without esophagitis; I10 Essential (primary) hypertension; H53.47 Heteronymous bilateral field defects; R42 Dizziness and giddiness; E83.41 Hypermagnesemia; Z83.3 Family history of diabetes mellitus; Z82.49 Family history of ischemic heart disease and other diseases of the circulatory system; Z80.3 Family history of malignant neoplasm of breast; Z88.0 Allergy status to penicillin; Z66 Do not resuscitate

== ENCOUNTER → 2017-12-01 | Outpatient (CLI) | payer OTHER ==
[~2017-12-01] MED LIST: ANT25 PO; ASPEC81 PO; ATEN50TA8 PO; LPT40 PO
--- NOTE | 2017-12-01 17:06 | DIAGNOSTIC IMAGING REPORT ---
L SHOULDER MIN 2 VIEWS ROUTINE CLINICAL HISTORY: PAIN IN L SHOULDER pain COMPARISON: None. DISCUSSION: Mild degenerative change glenohumeral joint. No acute bony abnormality. Study specifically negative for fracture or dislocation. There is no evidence for soft tissue swelling. IMPRESSION: Mild degenerative change. No acute process. The above report was generated using voice recognition software. It may contain grammatical, syntax or spelling errors. Electronically signed by: Abelino Sanon M.D. 12/01/2017 5:05 PM Dictated Date/Time: 12/01/2017 5:04 PM
== END | disposition home or self-care (01) ==
LOC: C.RAD1850 16:30
PROVIDERS: ATTEND Family Medicine
DX: M25.512 Pain in left shoulder (principal)

== ENCOUNTER 2018-05-08 20:30 | Emergency (ER) | payer OTHER ==
[~2018-05-08] VITALS: Ht 160 cm; Wt 60.2 kg
[~2018-05-08 20:30] MED LIST changes: -ASPEC81 PO; +ASPI-320 PO
[2018-05-08 20:33] VITALS: TEMP 36.5; Ht 160 cm; Wt 60.2 kg
[2018-05-08 21:12] LABS: BASO % 0.4 %; BASO ABS # 0.02 K/uL (0-0.2); EOS % 3.4 %; EOS ABS # 0.18 K/uL (0-0.5); HEMATOCRIT 39.3 % (37-47); HEMOGLOBIN 13.2 g/dL (12.0-16.0); IG# 0.01 K/uL (0.00-0.02); LYMPH ABS # 2.08 K/uL (1.2-3.4); MEAN CELL VOLUME 89.7 fL (80-100); MEAN CORPUSCULAR HEMOGLOBIN 30.1 pg (25-34); MEAN CORPUSCULAR HGB CONC 33.6 g/dl (32-36); MEAN PLATELET VOLUME 9.8 fL (7.4-10.4); MONO % 8.1 %; MONO ABS # 0.43 K/uL (0.11-0.59); NEUT % 48.9 %; NEUT ABS # 2.61 K/uL (1.4-6.5); PLATELET COUNT 212 K/uL (130-400); RED CELL DISTRIBUTION WIDTH CV 12.8 % (11.5-14.5); RED CELL DISTRIBUTION WIDTH SD 42.1 fL (36.4-46.3); WHITE BLOOD COUNT 5.33 K/uL (4.8-10.8)
--- NOTE | 2018-05-08 21:28 | DIAGNOSTIC IMAGING REPORT ---
CT HEAD WITHOUT CONTRAST (CT) CLINICAL HISTORY: Hearing loss. Possible intracranial mass. COMPARISON STUDY: 11/23/2017 TECHNIQUE: Axial CT of the brain is performed from the vertex to the skull base. IV contrast was not administered for this examination. A dose lowering technique was utilized adhering to the principles of ALARA. CT DOSE: 580.48 mGy.cm FINDINGS: No intra or extra-axial mass lesions are visualized. There is no CT evidence of acute cortical infarction. There is no evidence of midline shift. There is no acute hemorrhage. No calvarial fractures are visualized. There are minor white matter hypodensities likely on a small vessel basis. There is no evidence of pathologic ventricular dilatation. There is no evidence of acute sinusitis IMPRESSION: No acute intracranial findings Electronically signed by: Louis Bolton M.D. 05/08/2018 9:26 PM Dictated Date/Time: 05/08/2018 9:25 PM
[2018-05-08] MEDS ORDERED: ASPI81TA28 PO (21:43)
[2018-05-08] MEDS ORDERED: OMEP40CA41 PO (21:44)
[2018-05-08] MEDS ORDERED: ATEN-173 PO (21:45)
[2018-05-08] MEDS ORDERED: RANITAB33 PO (21:46)
[2018-05-08 21:47] LABS: CALCIUM 9.4 mg/dl (8.5-10.1); CREATININE 0.78 mg/dl (0.60-1.20)
[2018-05-09 01:05] VITALS: BP 164/102; PULSE 71; O2SAT 98
--- NOTE | 2018-05-09 01:18 | EMERGENCY ROOM VISIT NOTE ---
History Report prepared by Jennifer: Santos Carr Under the Supervision of: Dr. Yazan Curiel M.D. First contact with patient: 20:35 Chief Complaint: HEARING LOSS Stated Complaint: HEARING LOSS History of Present Illness The patient is a 67 year old female who presents to the Emergency Room with complaints of a worsening ability to hear out of her right ear beginning this morning. The patient states her symptoms started with ringing and muffled tones. She reports it has suddenly worsened throughout the day. The patient notes she called Dr. Bain today at 8PM this evening and was told she may need oral steroids and to go to the ED. The patient denies dizziness, vision changes , headache, ear pain, chest pain, abdominal pain, recent trauma to her head, and fevers. She states other than the hearing loss she feels fine. Source of History: patient Onset: this morning Position: ear (right) Symptom Intensity: severe Quality: other (ability to hear) Timing: worsening Associated Symptoms: No fevers, No headache, No chest pain, No abdominal pain Note: Denies: dizziness, vision changes, ear pain, recent trauma to her head Review of Systems See HPI for pertinent positives & negatives. A total of 10 systems reviewed and were otherwise negative. Past Medical & Surgical Medical Problems: (1) Dizziness (2) GERD (gastroesophageal reflux disease) (3) HTN (hypertension) (4) Transient vision disturbance of right eye (5) Transient visual loss Family History Breast cancer Diabetes mellitus Heart disease Social History Smoking Status: Never Smoker Drug Use: none Marital Status: Housing Status: lives with family Occupation Status: retired Current/Historical Medications Scheduled Aspirin (Aspirin Ec), 81 MG PO DAILY Atenolol (Tenormin), 25 MG PO DAILY Omeprazole (Prilosec), 40 MG PO DAILY Ranitidine Hcl (Zantac), 75 MG PO DAILY Allergies Coded Allergies: Penicillins (Unverified Allergy, Unknown, UNKNOWN, 11/23/17) Physical Exam Vital Signs Date Time Temp Pulse Resp B/P (MAP) Pulse Ox O2 Delivery O2 Flow Rate FiO2 05/08/18 23:30 71 16 176/104 97 Room Air 05/08/18 21:35 69 16 152/96 96 Room Air 05/08/18 20:33 36.5 73 20 167/101 96 Room Air Physical Exam Constitutional: Vital signs reviewed. Eyes: Pupils are equal round reactive to light. Conjunctiva are noninjected. ENT: Pharynx is clear without erythema or exudate. Mucous membranes are moist. Neck supple without meningeal signs. TMs are clear bilaterally. There is no source or signs of infection in the auditory canal. Small amount of flaky ear wax in the left side. Respiratory: Clear to auscultation bilaterally. Breath sounds are equal bilaterally. Cardiovascular: Regular rate and rhythm. No rubs or gallops. GI: Soft, nondistended and nontender. Bowel sounds are present. Musculoskeletal: No peripheral edema. No lower extremity tenderness. Integumentary: No cyanosis. Neurological: The patient is awake and alert. Cranial nerves II-XII are intact. Motor is 5 out of 5 all extremities. Sensation is intact to light touch all extremities. Normal speech. No pronator drift. No limb ataxia. Normal gait. Normal Mccray test. Air conduction is better than bone conduction bilaterally. Both are diminished on the right side compared to the left. Psychiatric: Normal affect. Medical Decision & Procedures ER Provider Diagnostic Interpretation: Radiology results as stated below per my review and the radiologist's interpretation: CT HEAD WITHOUT CONTRAST (CT) CLINICAL HISTORY: Hearing loss. Possible intracranial mass. COMPARISON STUDY: 11/23/2017 TECHNIQUE: Axial CT of the brain is performed from the vertex to the skull base. IV contrast was not administered for this examination. A dose lowering technique was utilized adhering to the principles of ALARA. CT DOSE: 580.48 mGy.cm FINDINGS: No intra or extra-axial mass lesions are visualized. There is no CT evidence of acute cortical infarction. There is no evidence of midline shift. There is no acute hemorrhage. No calvarial fractures are visualized. There are minor white matter hypodensities likely on a small vessel basis. There is no evidence of pathologic ventricular dilatation. There is no evidence of acute sinusitis IMPRESSION: No acute intracranial findings Electronically signed by: Louis Bolton M.D. 05/08/2018 9:26 PM Dictated Date/Time: 05/08/2018 9:25 PM Radiology results as stated below per my review and the [facility] radiologist's interpretation: MRI HEAD: No evidence of acute infarct. Mild periventricular and scattered T2/FLAIR white matter hyperintensities, nonspecific but most commonly related to chronic small vessel ischemic changes. No abnormal enhancement. Paranasal sinuses and mastoid air cells are clear. Lens replacements. Radiologist: Helder Alvarado MD Study ready at 0016 and initial results transmitted at 0102. Laboratory Results 05/08/18 20:55 Red Blood Count 4.38, Mean Corpuscular Volume 89.7, Mean Corpuscular Hemoglobin 30.1, Mean Corpuscular Hemoglobin Concent 33.6, Mean Platelet Volume 9.8, Neutrophils (%) (Auto) 48.9, Lymphocytes (%) (Auto) 39.0, Monocytes (%) (Auto) 8.1, Eosinophils (%) (Auto) 3.4, Basophils (%) (Auto) 0.4, Neutrophils # (Auto) 2.61, Lymphocytes # (Auto) 2.08, Monocytes # (Auto) 0.43, Eosinophils # (Auto) 0.18, Basophils # (Auto) 0.02 05/08/18 20:55 Test 05/08/18 20:55 White Blood Count 5.33 K/uL (4.8-10.8) Red Blood Count 4.38 M/uL (4.2-5.4) Hemoglobin 13.2 g/dL (12.0-16.0) Hematocrit 39.3 % (37-47) Mean Corpuscular Volume 89.7 fL (80-100) Mean Corpuscular Hemoglobin 30.1 pg (25-34) Mean Corpuscular Hemoglobin Concent 33.6 g/dl (32-36) Platelet Count 212 K/uL (130-400) Mean Platelet Volume 9.8 fL (7.4-10.4) Neutrophils (%) (Auto) 48.9 % Lymphocytes (%) (Auto) 39.0 % Monocytes (%) (Auto) 8.1 % Eosinophils (%) (Auto) 3.4 % Basophils (%) (Auto) 0.4 % Neutrophils # (Auto) 2.61 K/uL (1.4-6.5) Lymphocytes # (Auto) 2.08 K/uL (1.2-3.4) Monocytes # (Auto) 0.43 K/uL (0.11-0.59) Eosinophils # (Auto) 0.18 K/uL (0-0.5) Basophils # (Auto) 0.02 K/uL (0-0.2) RDW Standard Deviation 42.1 fL (36.4-46.3) RDW Coefficient of Variation 12.8 % (11.5-14.5) Immature Granulocyte % (Auto) 0.2 % Immature Granulocyte # (Auto) 0.01 K/uL (0.00-0.02) Anion Gap 4.0 mmol/L (3-11) Est Creatinine Clear Calc Drug Dose 57.1 ml/min Estimated GFR () 90.5 Estimated GFR (Non- 78.1 BUN/Creatinine Ratio 25.1 (10-20) Calcium Level 9.4 mg/dl (8.5-10.1) Laboratory results as reviewed by me. Medications Administered Medications (Trade) Dose Ordered Sig/Adalberto Route Start Time Stop Time Status Last Admin Dose Admin Prednisone (PredniSONE TAB) 60 mg NOW STAT PO 05/08/18 21:57 05/08/18 22:02 DC 05/08/18 22:19 60 MG ED Course 2040: The patient was evaluated in room C06. A complete history and physical exam was performed. 3: I discussed the patient's case with Dr. Bain, ENT. He recommend a steroid dose. She should follow-up in the office for further hearing testing. He does not recommend anti-virus medication. 7: Ordered Prednisone 60mg PO 2158: I reevaluated the patient and discussed an MRI to rule out a brain stem infarct. She is agreeable with the MRI and treatment plan. 2302: We are still waiting for the service desk technician to complete the scan. 0107: Upon reevaluation, the patient appeared to have improvement of her symptoms. I discussed her test results with her. She verbalized agreement of the treatment plan. The patient was discharged home. Medical Decision This is a 67-year-old female presents with sudden hearing loss. Differential diagnosis includes sudden sensorineural hearing loss, brainstem infarction, otitis media, cerumen impaction, brain mass. I did perform a limited focused review of portions of the patient's old chart on the electronic medical record. The patient was here for a TIA in November. She had visual changes with dizziness. Her MRI and MRA of the head and neck were unremarkable. I did evaluate the patient as noted above. IV access was established. I did order and review the patient's blood work as noted in the electronic medical record. I did order a CT of the head. I did review the images myself as well as the radiology report as described above. There is no evidence of acute abnormality. I did discuss case with Dr. Crawley of ENT. He recommended placing the patient on prednisone. I did write her prescription for a taper per his instructions. I did have concern for the potential for CVA given her prior history of recent TIA. I did order an MRI of the brain. The MRI did not show any acute infarct. The patient was informed of the test results and discharged home with a prescription for prednisone. She will follow-up with her ENT doctor for further testing. Medication Reconcilliation Current Medication List: was personally reviewed by me Blood Pressure Screening Patient's blood pressure: Elevated blood pressure Blood pressure disposition: Referred to PCP Consults Time Called: 2142 Consulting Physician: Dr. Bain ENT Returned Call: [phone] I discussed the patient's case with Dr. Bain, ENT. He recommend a steroid dose. She should follow-up in the office for further hearing testing. He does not recommend anti-virus medication. Impression Primary Impression: SNHL (sensorineural hearing loss) Scribe Attestation The scribe's documentation has been prepared under my direct and personally reviewed by me in its entirety. I confirm that the note above accurately reflects all work, treatment, procedures, and medical decision making performed by me. Departure Information Dispostion Home / Self-Care Referrals Andrea Patel M.D. (PCP) Brian Bain M.D. Forms HOME CARE DOCUMENTATION FORM, IMPORTANT VISIT INFORMATION, WORK / SCHOOL INSTRUCTIONS Patient Instructions My [facility] Additional Instructions You have been examined and treated today on an emergency basis only. This is not a substitute for, or an effort to provide, complete comprehensive medical care. It is impossible to recognize and treat all injuries or illnesses in a single emergency department visit. It is therefore important that you follow up closely with next week. Call as soon as possible for an appointment. Return for worsening symptoms or if you develop fever, numbness or weakness on one side of your body, difficulties with your speech or walking, or any other concerning symptoms. Problem Qualifiers Primary Impression: SNHL (sensorineural hearing loss) Laterality: right Contralateral hearing status: unspecified Qualified Codes : H90.5 - Unspecified sensorineural hearing loss
--- NOTE | 2018-05-09 06:04 | DIAGNOSTIC IMAGING REPORT ---
BRAIN COMBO CLINICAL HISTORY: eval for brainstem infarction COMPARISON STUDY: 11/23/2017 TECHNIQUE: Utilizing a 1.5 Lisa magnet and dedicated coil, multiplanar, multiecho imaging of the brain was performed pre and postcontrast administration. IV administration of 8 mL of Gadavist contrast was uneventful. FINDINGS: No evidence for an acute ischemic event. Diffusion-weighted images are unremarkable. The ventricular system is midline. Sella and parasellar regions are unremarkable. No abnormal postcontrast enhancement. IMPRESSION: No acute process. Mild chronic small vessel change of aging. The above report was generated using voice recognition software. It may contain grammatical, syntax or spelling errors. Electronically signed by: Abelino Sanon M.D. 05/09/2018 6:02 AM Dictated Date/Time: 05/09/2018 5:59 AM
== END 2018-05-09 01:05 | disposition home or self-care (01) ==
LOC: C.EDB 20:31 → C.EDC 05-09 01:05
DX: H90.5 Unspecified sensorineural hearing loss (principal); I10 Essential (primary) hypertension; K21.9 Gastro-esophageal reflux disease without esophagitis; Z86.73 Personal history of transient ischemic attack (TIA), and cerebral infarction without residual deficits; Z79.82 Long term (current) use of aspirin; Z79.899 Other long term (current) drug therapy; Z88.0 Allergy status to penicillin